=== PATIENT | female | born 2000 | race Caucasian/White ===

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

== ENCOUNTER 2021-01-10 02:50 | Inpatient (IN) | payer MEDICAID, SELFPAY ==
[2021-01-10] VITALS (60 sets, daily range): BP systolic 118–182; BP diastolic 56–92; PULSE 61–131; RESP 16–20; TEMP 36.1–36.7; O2SAT 96–99; BMI 27.3
[2021-01-10 03:06] LABS: Nitrazine Paper, PH Positive
[2021-01-10] MEDS: lactated ringers 1,000 ML 999 ML IV (03:50)
[2021-01-10 04:04] LABS: Basophils % 0.4 %; Eosinophils % 0.1 %; Hematocrit 33.4 % (37.0-47.0); Hemoglobin 10.1 g/dL (11.5-15.3); Lymphocytes # 2.8 10^3/uL (1.5-6.5); Lymphocytes % 38.8 %; Mean Corpuscular HGB Conc 30.2 g/dL (30.0-36.0); Mean Corpuscular Volume 75.9 fl (81-99); Mean Platelet Volume 12.6 fL (7.4-10.4); Monocytes # 0.5 10^3/uL (0.2-0.9); Monocytes % 7.6 %; Neutrophils # 3.71 10^3/uL (1.8-8.0); Neutrophils % 52.5 %; Nucleated Red Blood Cells % 0 %; Platelet Count 340 10^3/cmm (130-400); Red Cell Distribution Width 17.2 % (12.1-15.1); White Blood Count 7.1 10^3/uL (4.5-13.0)
--- NOTE | 2021-01-10 04:08 | PC.NURSE ---
Patient's pain increased from 5 to a 6/10. Pt's IV fluid bolus initiated by Karel Mead for epidural procedure. Offered patient fentanyl IV pain medication, she denies at this time.
--- NOTE | 2021-01-10 05:05 | ANES.PREANE2 ---
Pre-Anesthetic Assessment Pre-Anesthetic Assessment: Height/Weight: Height 1.73 m Weight 81.647 kg Pulse Resp BP 85 20 H 134/68 01/10/21 03:50 01/10/21 03:26 01/10/21 03:50 Preop Diagnosis: labor pains Proposed Procedure: epidural Familial anesthetic complications: none Was Beta Luci taken within 24 hours: N/A Was Clonidine taken within 24 hours: N/A Social: Social History: No alcohol and No tobacco Exam: Pre-Anes Outpt Exam: alert, oriented x 3, clear to auscultation bilaterally and regular rate & rhythm Airway: Submandibular: WNL Cervical ROM: WNL MP: 2 Dentition: Full Pulmonary: Pulmonary: None reported Comments: costochondritis CV/HEM: CV/HEM: None reported : : None reported Hepatic: Hepatic: None reported GI: GI: GERD (milk makes it better) Metabolic: Metabolic: None reported Musc/skel: Musc/skel: None reported Neuropsych: Neuropsych: Anxiety Anesthetic Plan: ASA status: 2 Anesthesia: Regional (specify below) Risk of > 500 ml blood loss (7ml/kg in children): No Meds/Allergies Current Medications: Current Medications Generic Name Dose Route Start Last Admin Trade Name Freq PRN Reason Stop Dose Admin Lactated Ringer's 1,000 mls @ 999 m ls/hr 01/10/21 03:26 01/10/21 03:50 Lactated Ringers IV 999 mls/hr .Q1H1M PRN Administration See label comment s PFSH Anesthesia PFSH: Social History Smoking and tobacco status: never smoked Alcohol intake: never Female Reproductive History: Date of last menstrual period: 04/16/20 : 1 Data Anesthesia CBC & Chem 7: 01/10/21 03:05 Other Labs: Laboratory Results - last 48 hr 01/10/21 03:05 WBC 7.1 RBC 4.40 Hgb 10.1 L Hct 33.4 L MCV 75.9 L MCH 23.0 L MCHC 30.2 RDW 17.2 H Plt Count 340 MPV 12.6 H Neut % (Auto) 52.5 Lymph % (Auto) 38.8 [place] % (Auto) 7.6 Eos % (Auto) 0.1 Baso % (Auto) 0.4 Neut # (Auto) 3.71 Lymph # (Auto) 2.8 [place] # (Auto) 0.5 Eos # (Auto) 0.0 Baso # (Auto) 0.0 Nucleated RBC % (auto) 0 Nucleated RBCs # 0.0 Cardiac Studies: No Data to Display
[2021-01-10] MEDS: fentaNYL 50 mcg/mL INJ 2mL IVP (05:29)
[2021-01-10] MEDS: lactated ringers 1,000 ML 125 ML IV (05:31)
--- NOTE | 2021-01-10 05:43 | P.ANES_ITS ---
Anesthesia Procedures Procedure/Date: 01/10/21 epidural Procedure Narrative: epidural complete, bolus given, epidural pump initiated with JEWEL CORNER BRUSHING MACHINE OPERATOR education given, vitals taken during procedure using OBIX system and satisfactory throughout, patient admits to decrease pain, report of procedure to OB RN Epidural: Time Out Performed: Yes Consents Signed: Procedure Consent Consent: requested by attending/covering physician, from patient, risks and benefits reviewed and patient agrees to proceed Lumbar Level: L3-L4 Epidural position: sitting Epidural procedure: sterile prep of area, 1% lidocaine to numb the area (3 mL), 18 g needle, negative for paresthesia passed, neg for paresthesia, test dose given, 1.5% xylocaine 1:200k epi (5 mL), 0.2% Ropivacaine bolus ml (5 mL), placed PCEA, no systemic response, sterile dressing applied, L.U.D. no apparent complications and 0.2% Ropiavacaine @ mls/hr (13 mL/hr)
[2021-01-10] MEDS: oxytocin 30 UNIT/500 ML BAG IV (10:04)
--- NOTE | 2021-01-10 12:12 | PM.OPHPUD ---
Labor & Delivery H&P Update Date of Procedure: January 10, 2021 Date H&P Performed: 01/03/21 Admission Diagnosis: Preop diagnosis: labor pains
--- NOTE | 2021-01-10 12:14 | PM.DELIVERY ---
Delivery Note: Date of delivery: January 10, 2021 Pre-Delivery Course: She had routine care during she was O+ antibody negative, rubella immune, GBS negative. Mother did test Covid positive on 12/27/2020 and is passed her quarantine. Delivery: This is a 20-year-old at 38 weeks 3 days gestation who presented to labor and delivery complaining of spontaneous rupture of membranes. She had rupture of membranes at approximately 02 100 with clear fluid. She was grossly ruptured. She received an epidural for pain management. Her labor was augmented using Pitocin and she had a normal spontaneous vaginal delivery of a viable male infant weight 7 pounds 1 ounces, 3210 g over an intact perineum. The was suctioned at delivery and placed on the mother's chest. The cord was clamped and cut. The placenta was delivered grossly intact and normal to inspection. There was a first-degree vaginal laceration that was sutured using 3-0 chromic. Mother and infant were doing well after delivery. Mother was GBS negative. Rupture of membranes was approximately 10 hours prior to delivery. A&P Assessment and plan (1) Spontaneous with laceration of vagina: Status: Acute Coding Level of Care Code Acute Administrative Support Coordinator for [facility] Diagnoses Spontaneous with laceration of vagina O03.84
[2021-01-10] MEDS: benzocaine-menthol 78 gm Canister 1 SPRAY TOPICAL (14:34)
[2021-01-10] MEDS: lanolin oint 7 gm 1 APPLIC TOPICAL (14:35)
[2021-01-10] MEDS: ibuprofen 800 mg tablet PO ×2 (14:35→21:54)
--- NOTE | 2021-01-10 16:11 | ANE.PACU2 ---
Inpatient post-anesthesia follow up: Airway intact: Yes Vital signs: Temperature 97.0 F Pulse Rate 81 Respiratory Rate 16 Blood Pressure 140/76 Pulse Oximetry 98 Oxygen Delivery Me thod Non-Rebreather Oxygen Flow Rate 10 Fraction of Inspir ed Oxygen Hydration adequate: Yes Nausea and vomiting: No Pain level: 1 Mental status: Baseline
[2021-01-11 00:50] LABS: Mean Corpuscular Hemoglobin 23.3 pg (28.0-34.0); Mean Corpuscular Volume 77.5 fl (81-99); Mean Platelet Volume 11.4 fL (7.4-10.4); Platelet Count 240 10^3/cmm (130-400); Red Blood Count 3.87 10^6/uL (4.1-5.3); Red Cell Distribution Width 17.1 % (12.1-15.1); White Blood Count 8.9 10^3/uL (4.5-13.0)
[2021-01-11 02:00] VITALS: BP 119/72; PULSE 70; TEMP 36.7; O2SAT 99
[2021-01-11 06:00] VITALS: BP 131/73; PULSE 77; O2SAT 98
[2021-01-11] MEDS: docusate sodium 100 mg Capsule PO (09:08)
[2021-01-11] MEDS: prenatal vitamin Capsule 1 CAP PO (09:08)
[2021-01-11] MEDS: ibuprofen 800 mg tablet PO (09:08)
[2021-01-11 11:10] VITALS: BP 143/88; PULSE 84; RESP 16; TEMP 36.6; O2SAT 98
--- NOTE | 2021-01-11 12:52 | PM.DCS ---
Discharge Providers Date of Admission: 01/10/21 02:50 Date of Discharge: January 11, 2021 Attending Provider at Admission: Jazmine Blancas MD Attending Provider at Discharge: Jazmine Blancas MD Primary Care Provider: Maria T Carbone DO Diagnoses at Discharge Discharge Diagnosis (1) Spontaneous vaginal delivery: Status: Acute Reason for Visit Reason for Visit: possible [facility] Hospital Course Hospital Course This is a 20-year-old G1 now P1 who was admitted with spontaneous rupture of membranes at 38 weeks 3 days gestation. She had a normal spontaneous vaginal delivery of a viable male . Mother and infant did well after delivery. On day #1 she was ambulating, tolerating a regular diet, had average vaginal bleeding and was comfortable with discharge home. Physical Exam Narrative: EXAM NARRATIVE: Alert and oriented, sitting up in bed holding baby. Abdomen is soft, nontender, fundus is firm and U- 2. She does have some pedal edema that is nonpitting, no calf tenderness. Urinary Catheter Management^: Kirk: Cath Placed During This Visit: yes Reason for Continuing Indwelling Catheter: Perioperative Use in Selected Surgeries Urinary Catheter Date of Insertion: 01/10/21 Urinary Catheter Time of Insertion: 06:10 Discharge Data Data Completed and Pending: Labs from last 24 hours 01/11/21 00:26 WBC 8.9 RBC 3.87 L Hgb 9.0 L Hct 30.0 L MCV 77.5 L MCH 23.3 L MCHC 30.0 RDW 17.1 H Plt Count 240 MPV 11.4 H Vitals: Last Vital Signs Temp 98.0 F 01/11/21 02:00 Pulse 77 01/11/21 06:00 Resp 17 01/10/21 19:45 BP 131/73 01/11/21 06:00 Pulse Ox 98 01/11/21 06:00 Discharge Plan Discharge Patient Disposition: Home Condition: Stable Prescriptions: Continued 1 tab PO DAILY@0800 RF: 0 Discharge Orders: Discharge Order (Routine); Ordered 01/11/21 Ordered By: Jazmine Blancas Referrals: Jazmine Blancas MD [Physician] - 1 month Discharge Diet: Usual diet Discharge Activity: Limit activity as instructed Patient Instructions: Opioid Safety Activity Restrictions/Additional Instructions: Nothing per vagina for at least 6 weeks Discharge Attestations Time Spent in Discharge Care*: less than 30 min Quality Metrics Clinical Quality Measures During this hospital stay, did patient experience: None Coding Level of Care Code Acute Chg FW DC note Diagnoses Spontaneous vaginal delivery O80
[2021-01-11 16:11] VITALS: BP 149/87; PULSE 72; RESP 16; TEMP 36.7; O2SAT 99
== END 2021-01-11 15:50 | disposition home or self-care (01) | DRG 807 ==
LOC: OPOB 03:33 → OBGYN 03:33
PROVIDERS: Admitting Provider Family Medicine; PCP Family Medicine; Visit Provider Family Medicine
DX: O70.0 First degree perineal laceration during delivery (principal); Z37.0 Single live birth; Z3A.38 38 weeks gestation of pregnancy; Z86.16 Personal history of COVID-19
CPT/HCPCS: 36415; 51702; 59025; 59409; 83986; 85025; 85027; 96374; 98960; 99211; J2795; J3010

== ENCOUNTER 2024-03-08 09:02 | Emergency (ER) | payer BC, SELFPAY ==
[2024-03-08 09:24] VITALS: BP 120/85; PULSE 90; RESP 16; TEMP 36.8; O2SAT 100; BMI 21.2
--- NOTE | 2024-03-08 09:40 | W.ED.HA ---
HPI - Headache General: Chief Complaint: Headache Stated Complaint: Headache, N/V 10 weeks preg Time Seen by Provider: 03/08/24 09:20 Source: patient Mode of arrival: ambulatory Limitations: no limitations History of Present Illness: Patient is a 23-year-old female at approximately 10 weeks here with complaints of a headache. Patient states she normally does not have a history of headaches but states she has had them in the past with her prior . She states she had to come to the emergency department once in 2020 for severe headache during . She states the medication she was provided with almost completely resolved her headache. She states her headache today is similar to then. Headache began several hours ago. She is not having any neck pain or stiffness. No fevers. No recent injury or trauma. States she is having some paresthesias to her fingers and mouth/lips. She states she has had this before. It was documented in 2020 with similar symptoms as well. She does appear slightly anxious. MD elicited complaint: headache Pertinent past history: migraines (during ) Onset (ago): hour(s) Severity: severe Pain scale (0-10): 9 Exacerbating factors: none Relieving factors: nothing Associated symptoms: Reports nausea; Deny chest pain, confusion, fever(s), lightheadedness, malaise, pre-syncope, syncope or vomiting Treatments prior to arrival: none Related Data Previous Rx's Medication Instructions Recorded carbamide peroxide 6.5 % ear drops 5 drp otic (ear) DAILY 4 days #15 01/26/23 (Debrox) mL Allergies Allergy/AdvReac Type Severity Reaction Status Date / Time No Known Allergies Allergy Verified 01/26/23 08:28 Review of Systems Const: Denies: fever(s), chills, body aches, fatigue or malaise Eyes: Denies: change in vision, blurry vision, photophobia, floaters or seeing flashes Card: Denies: chest pain, palpitations, lightheadedness, syncope or pre-syncope Resp: Denies: dyspnea GI: Reports: nausea; Denies: abdominal pain, vomiting or diarrhea : Denies: flank pain or dysuria Musc: Denies: neck pain, back pain, extremity pain, extremity swelling, joint pain or joint swelling Neuro: Reports: headache(s); Denies: weakness in extremities, lack of coordination, difficulty walking, dizziness, confusion, behavioral changes, Slurred speech present, difficulty communicating thoughts or seizure-like activity PFSH ED PFSH: Social History Smoking and tobacco/nicotine status: never used tobacco/nicotine Alcohol intake: never Substance/Drug Use: never Physical Exam Const: COMMON NORMALS: average body habitus, patient oriented x3, no limitations, healthy appearing, alert and well nourished GENERAL APPEARANCE: in distress (appears uncomfortable secondary to headache) and anxious ORIENTATION/CONSCIOUSNESS: Yes awake, Yes oriented to person, Yes oriented to place and Yes oriented to time HENMT: COMMON NORMALS: normocephalic and atraumatic HEAD & SCALP: normal to inspection, normocephalic and atraumatic FACE & SINUS: normal facial exam and face symmetric Eye: GENERAL EYE: appearance normal, both eyes and all related structures and normal light reflex DIRECT OPHTHALMOSCOPY: Yes normal light reflex Neck/C-Spine: COMMON NORMALS: full ROM and no meningeal signs Resp: COMMON NORMALS: normal respiratory effort and clear to auscultation bilaterally AUSCULTATION: clear to auscultation bilaterally Cardio: COMMON NORMALS: regular rate and regular rhythm RATE: regular rate RHYTHM: regular rhythm Extremity: GENERAL: Yes normal exam except as noted Neuro: JUAN COMA SCALE: document GCS findings [place] coma scale eye opening: Spontaneous Juan coma scale verbal response: Orientated [place] coma scale motor response: Obey commands [place] coma scale total score: 15 COMMON NORMALS: patient oriented x3, CN's II-XII intact bilaterally, moves all extremities, no focal motor deficits, no sensory deficits noted and gait normal SENSORIUM/ORIENTATION: Yes alert, Yes oriented to person, Yes oriented to place and Yes oriented to time MENINGEAL SIGNS: Yes no meningeal signs Skin: COMMON NORMALS: no rashes or lesions noted GENERAL SKIN EXAM: no rashes or lesions noted Course Vital Signs: Vital signs: Vital Signs Temperature 98.3 F 03/08/24 09:24 Pulse Rate 85 03/08/24 09:42 Respiratory Rate 16 03/08/24 09:24 Blood Pressure 126/68 03/08/24 09:42 Pulse Oximetry 99 03/08/24 09:42 Oxygen Delivery Me thod Room Air 03/08/24 09:42 MDM - Headache Medical Decision Making Patient was given IV fluids, Toradol, Phenergan, and Acetaminophen as this is what she was given back in 2020. I did check with Dr. Dominguez in regards to the Toradol who stated we could use this during early . Upon arrival to the emergency department she was rating her head at a 9/10. Upon re-examination she is sleeping comfortably in no acute distress. She has now rating her pain at a 2/10 and would like to go home and rest. Return to ED precautions given. Differential Diagnosis Likely migraine Medical Records I reviewed the patient's medical records. No radiology studies performed this visit Discharge Plan Discharge Patient Disposition: Home Clinical Impression: Headache in Qualifiers: Trimester: first trimester Qualified Code(s): O26.891 - Other specified related conditions, first trimester Condition: Stable Prescriptions: No Action Debrox 6.5 % drops 5 drp otic (ear) DAILY 4 Days Qty: 15 0RF Discharge Orders: Discharge ED (Routine); Ordered 03/08/24 Ordered By: Janis Francois Referrals: Maria T Carbone DO [Primary Care Provider] - Activity Restrictions/Additional Instructions: You may return to the emergency department at anytime for continued onset of severe headache, visual changes, repetitive episodes of vomiting, fever, neck pain or stiffness, any mental status changes, or any other concerns you may have. Coding Level of Care Code ED Program Management Manager for [facility]
[2024-03-08 09:42] VITALS: BP 126/68; PULSE 85; O2SAT 99
[2024-03-08] MEDS: promethazine 25 mg/mL SDV 1 mL IM (09:54)
[2024-03-08] MEDS: ketorolac 30 mg/mL INJ IVP (09:56)
[2024-03-08] MEDS: acetaminophen 1,000 MG/100 ML PIGGYBACK 400 MG IV (10:00)
[2024-03-08] MEDS: sodium chloride 0.9% 1,000 ML 999 ML IV (10:03)
[2024-03-08 11:03] VITALS: BP 129/73; PULSE 68; O2SAT 100
== END 2024-03-08 11:07 | disposition home or self-care (01) ==
PROVIDERS: Emergency Provider Physician Assistant; PCP Family Medicine
DX: O26.891 Other specified pregnancy related conditions, first trimester (principal); Z3A.10 10 weeks gestation of pregnancy
CPT/HCPCS: 96374; 96375; 99284; J0131; J1885; J2550; J7030

== ENCOUNTER 2024-08-16 22:05 | Outpatient (CLI) | payer BC, SELFPAY ==
[2024-08-16 22:05] VITALS: BMI 26.6
[2024-08-16 22:16] VITALS: BP 138/73; PULSE 100
[2024-08-16 22:36] VITALS: BP 122/67; PULSE 88
[2024-08-16 22:43] LABS: Nitrazine Paper, PH Negative
[2024-08-16 22:55] LABS: Bilirubin Urine Neg (Negative); Blood Urine Trace (Negative); Glucose Urine UA Norm (Normal); Ketones Urine Negative (Negative); Leukocyte Esterase Urine 2+ (Negative); Nitrate Urine Negative (Negative); Protein Urine Neg (Negative); Urine Appearance Clear (CLEAR); Urine Color Yellow (Yellow); Urobilinogen Urine Norm (Negative); pH Urine 8 (5-7)
[2024-08-16 22:56] VITALS: BP 134/72; PULSE 92
[2024-08-16 22:57] LABS: Bacteria Urine 1+ /hpf; Hyaline Casts Urine 1.21 /lpf; RBC Urine 0-2 /hpf (0-2); Squamous Epithelial Cell Urine 0-5 /hpf (0-5)
[2024-08-16 23:05] LABS: Add Urine Culture? Yes
[2024-08-16 23:16] VITALS: BP 131/65; PULSE 90
[2024-08-16 23:16] LABS: Actim Prom Negative
[2024-08-16 23:37] VITALS: BP 124/58; PULSE 95
[2024-08-16 23:56] VITALS: BP 124/72; PULSE 94
[2024-08-17] VITALS (7 sets, daily range): BP systolic 116–127; BP diastolic 56–64; PULSE 74–92; RESP 16; O2SAT 98
[2024-08-17] MEDS: cefTRIAXone 1,000 MG in lidocaine 1% 2.1 ML 2.1 MG IM (00:04)
[2024-08-17] MEDS: NIFEdipine ER (24 hr) 30 mg Tablet PO (00:54)
== END 2024-08-17 01:52 | disposition home or self-care (01) ==
LOC: OPOB 22:12 → OBGYN 22:13
PROVIDERS: PCP Family Medicine; Visit Provider Family Medicine
DX: O26.899 Other specified pregnancy related conditions, unspecified trimester (principal); Z3A.00 Weeks of gestation of pregnancy not specified; R10.9 Unspecified abdominal pain; N89.8 Other specified noninflammatory disorders of vagina
CPT/HCPCS: 59025; 81001; 83986; 84112; 87086; 99211

== ENCOUNTER 2024-08-17 14:14 | Outpatient (CLI) | payer BC, SELFPAY ==
[2024-08-17 14:14] VITALS: RESP 17; BMI 26.3
[2024-08-17 14:41] VITALS: BP 117/66; PULSE 96
[2024-08-17] MEDS: NIFEdipine ER (24 hr) 30 mg Tablet PO (15:29)
== END 2024-08-17 16:17 | disposition home or self-care (01) ==
LOC: OPOB 14:15 → OBGYN 14:15 → NUR 14:52 → OBGYN 14:55
PROVIDERS: PCP Family Medicine; Visit Provider Family Medicine
DX: O26.899 Other specified pregnancy related conditions, unspecified trimester (principal); Z3A.00 Weeks of gestation of pregnancy not specified; R10.9 Unspecified abdominal pain
CPT/HCPCS: 59025; 99211; J9999

== ENCOUNTER 2024-09-12 12:30 | Outpatient (CLI) | payer BC, SELFPAY ==
[2024-09-12] VITALS (11 sets, daily range): BP systolic 113–134; BP diastolic 56–80; PULSE 78–104; RESP 16; BMI 27.8
[2024-09-12] MEDS: HYDROcodone-acetaminophen 5-325 mg Tablet 1 TAB PO (13:16)
[2024-09-12 13:43] LABS: Urine Creatinine 117 mg/dL (28-217); Urine Protein Random 20 mg/dL
[2024-09-12 13:44] LABS: UPRO/UCREAT Ratio 0.17 mg/mg CR
== END 2024-09-12 15:00 | disposition home or self-care (01) ==
LOC: OPOB 12:33 → OBGYN 12:33
PROVIDERS: PCP Family Medicine; Visit Provider Family Medicine
DX: O26.899 Other specified pregnancy related conditions, unspecified trimester (principal); Z3A.00 Weeks of gestation of pregnancy not specified; G43.909 Migraine, unspecified, not intractable, without status migrainosus
CPT/HCPCS: 59025; 82570; 84156; 99211; J9999

== ENCOUNTER 2024-09-20 04:53 | Inpatient (IN) | payer BC, SELFPAY ==
[2024-09-20] VITALS (17 sets, daily range): BP systolic 119–185; BP diastolic 62–76; PULSE 72–114; RESP 16–17; TEMP 36.8–37; O2SAT 98; BMI 27.8
[2024-09-20] MEDS: lactated ringers 1,000 ML 999 ML (04:45)
[2024-09-20 04:58] LABS: Basophils % 0.3 %; Eosinophils % 0.2 %; Hematocrit 37.3 % (36-47); Lymphocytes # 2.7 10^3/uL (0.8-4.8); Lymphocytes % 23.9 %; Mean Corpuscular HGB Conc 32.2 g/dL (30-55); Mean Corpuscular Hemoglobin 26.1 pg (27-33); Mean Corpuscular Volume 81.1 fl (85-98); Mean Platelet Volume 10.2 fL (7.4-10.4); Monocytes # 0.9 10^3/uL (0.2-0.9); Monocytes % 7.8 %; Neutrophils # 7.73 10^3/uL (1.8-7.7); Neutrophils % 67.4 %; Nucleated Red Blood Cells % 0 %; Platelet Count 264 10^3/cmm (157-399); Red Cell Distribution Width 20.4 % (12.1-15.1); White Blood Count 11.47 10^3/uL (3.29-11.43)
[2024-09-20] MEDS: oxytocin 30 UNIT/500 ML BAG 600 UNIT IV (05:32)
--- NOTE | 2024-09-20 05:50 | PM.OPHPUD ---
Labor & Delivery H&P Update Date of Procedure: September 20, 2024 Date H&P Performed: 09/19/24 Admission Diagnosis: 23-year-old 2 para 1-0-0-1 at 38 weeks estimated gestational age presenting in active labor Planned procedure: Spontaneous vaginal delivery Other information: The patient is a pleasant 38-week female who has had an unremarkable . She has had consistent care. There have been no complications. She presented to the hospital in active labor. She was found to be 7 cm dilated with a bag that was bulging past the introitus. Her blood type was O+. Her antibody screen was negative. She passed her glucose screen. She was GBS negative. She is rubella immune. The remainder of her infectious disease profile was within normal limits. Related Problem List Diagnoses (1) 38 weeks gestation of : (2) Active labor: A&P Assessment and plan (1) 38 weeks gestation of : I anticipate spontaneous vaginal delivery. Status: Acute (2) Active labor: Status: Acute PDMP PDMP Reviewed: Not Reviewed
--- NOTE | 2024-09-20 05:54 | P.PCNOB_ITS ---
Delivery Note: Date of delivery: September 20, 2024 Pre-delivery diagnoses: 23-year-old 2 para 1-0-0-1 in ac tive labor Post-delivery diagnoses: Status post spontaneous vaginal delivery Procedure: Spontaneous vaginal delivery Delivering Physician: Goldy Mckeon Estimated blood loss (mL): 25 Pre-Delivery Course: The patient presented to the hospital in active labor. She quickly progressed to complete. Her membranes were intact until just prior to delivery when an amniotomy was performed. Delivery: DELIVERY: The patient progressed to complete without difficulty. She delivered a female with a weight of [] with Apgars of 9, 10. The baby was delivered from the KIRK position and placed on the mother's abdomen. The cord was then clamped and cut. There was a nuchal cord x 2 which was reduced easily prior to delivery of the shoulder. There was no meconium. The placenta and 3 vessel cord were delivered intact shortly thereafter. The perineum and vaginal vault were carefully examined. A superficial posterior midline first-degree laceration was noted which was not bleeding did not require repair. Both the mother and the baby were in stable condition. Post-Delivery Status: Good A&P Assessment and plan (1) Spontaneous vaginal delivery: I anticipate routine care (2) 38 weeks gestation of : PDMP PDMP Reviewed: Not Reviewed Coding Level of Care Code Acute Code for Chg Fwd Diagnoses Spontaneous vaginal delivery O80 38 weeks gestation of Z3A.38
[2024-09-20] MEDS: docusate sodium 100 mg Capsule PO ×2 (10:31→18:30)
[2024-09-20] MEDS: lanolin oint 7 gm 1 APPLIC TOPICAL (10:31)
[2024-09-20] MEDS: ibuprofen 800 mg tablet PO ×3 (10:31→21:43)
[2024-09-20] MEDS: benzocaine-menthol 78 gm Canister 1 SPRAY TOPICAL (10:31)
[2024-09-20] MEDS: PRENATAL VIT NO.130/IRON/FOLIC 1 EACH TABLET PO (10:31)
[2024-09-20 18:38] LABS: Hematocrit 32.1 % (36-47); Mean Corpuscular HGB Conc 31.8 g/dL (30-55); Mean Corpuscular Hemoglobin 26.4 pg (27-33); Mean Corpuscular Volume 83.2 fl (85-98); Mean Platelet Volume 10.2 fL (7.4-10.4); Platelet Count 199 10^3/cmm (157-399); Red Blood Count 3.86 10^6/uL (3.85-5.65); Red Cell Distribution Width 20.3 % (12.1-15.1); White Blood Count 10.67 10^3/uL (3.29-11.43)
--- NOTE | 2024-09-21 05:46 | PM.OBGYDC ---
Discharge Providers [facility] [employer] Date of Admission: 09/20/24 04:53 Date of Discharge: 09/21/24 Attending Provider at Admission: Goldy Mckeon MD Attending Provider at Discharge: Goldy Mckeon MD Primary Care Provider: Maria T Carbone DO Diagnoses at Discharge Discharge Diagnosis (1) Spontaneous vaginal delivery: Status: Acute (2) 38 weeks gestation of : Status: Acute Reason for Visit Reason for Visit: Possible labor Hospital Course Hospital Course The patient presented to the hospital dilated 7 cm with her amniotic sac protruding from her vagina. Shortly after arriving, an amniotomy was performed, and several contractions after her amniotomy she had an unremarkable vertex vaginal delivery. The patient only had a superficial first-degree tear. It did not require repair. Her bleeding was within normal limits. Her course has also been within normal limits. She initially attempted to breast-feed, but was unsuccessful. Her bleeding has been unremarkable. Her pain has been well-controlled. There have been no concerns. Information Peripartum Data: Infant Delivery Method: Vaginal Physical Exam Narrative: The patient is alert. She appears comfortable. Her heart has a regular rate and rhythm with no murmurs appreciated. Lungs are clear to auscultation bilaterally. Her fundus is firm and below the umbilicus. Discharge Data Studies Completed and Pending Laboratory Results WBC 10.67 10^3/uL (3.29-11.43) 09/20/24 18:25 RBC 3.86 10^6/uL (3.85-5.65) 09/20/24 18:25 Hgb 10.20 g/dL (11.27-16.99) L 09/20/24 18: Hct 32.1 % (36-47) L 09/20/24 18: MCV 83.2 fl (85-98) L 09/20/24 18: MCH 26.4 pg (27-33) L 09/20/24 18: MCHC 31.8 g/dL (30-55) 09/20/24 18: RDW 20.3 % (12.1-15.1) H 09/20/24 18:25 Plt Count 199 10^3/cmm (157-399) 09/20/24 18: MPV 10.2 fL (7.4-10.4) 09/20/24 18:25 Neut % (Auto) 67.4 % 09/20/24 04:40 Lymph % (Auto) 23.9 % 09/20/24 04:40 Beadle % (Auto) 7.8 % 09/20/24 04:40 Eos % (Auto) 0.2 % 09/20/24 04:40 Baso % (Auto) 0.3 % 09/20/24 04:40 Neut # (Auto) 7.73 10^3/uL (1.8-7.7) H 09/20/24 04:40 Lymph # (Auto) 2.7 10^3/uL (0.8-4.8) 09/20/24 04:40 Beadle # (Auto) 0.9 10^3/uL (0.2-0.9) 09/20/24 04:40 Eos # (Auto) 0.0 10^3/uL (0.0-0.8) 09/20/24 04:40 Baso # (Auto) 0.0 10^3/uL (0.0-0.1) 09/20/24 04:40 Nucleated RBC % (auto) 0 % 09/20/24 04:40 Nucleated RBCs # 0.0 /100WBC 09/20/24 04:40 Blood Type O Positive 09/20/24 04:40 Rho(D) Type Rh positive 09/20/24 04:40 Antibody Screen Negative 09/20/24 04:40 Vitals Last Vital Signs Temp 98.2 F 09/20/24 23:28 Pulse 72 09/20/24 23:28 Resp 16 09/20/24 23:28 BP 124/72 09/20/24 23:28 Pulse Ox 98 09/20/24 23:28 O2 Del Method Room Air 09/20/24 23:28 Results Labs OB ([facility]): Obstetrics US 07/21/24 Blood Type O Positive 09/20/24 Antibody Screen Negative 09/20/24 Hct, (36-47) 32.1 % L 09/20/24 Hgb, (11.27-16.99) 10.20 g/dL L 09/20/24 Rho(D) Type Rh positive 09/20/24 Plt Count, (157-399) 199 10^3/cmm 09/20/24 Micro Urine Specimen 08/16/24 Discharge Plan Discharge Patient Disposition: Home Condition: Stable Prescriptions: New ibuprofen 800 mg Tablet 800 mg PO TID Qty: 45 0RF Continued ferrous sulfate [Iron (ferrous sulfate)] 325 mg (65 mg iron) Tablet 1 mg PO 1XD [id number] 1 mg Tablet 1 tab PO 1XD Discharge Orders: Discharge Order (Routine); Ordered 09/21/24 Ordered By: Goldy Mckeon Referrals: Goldy Mckeon MD [Physician, Family Practice] - 6 Weeks Discharge Diet: Usual diet Discharge Activity: Limit activity as instructed Patient Instructions: Opioid Safety Discharge Attestations [facility] [employer] Time Spent in Discharge Care*: less than 30 min Coding Level of Care Code Acute Code for Chg Fwd Diagnoses Spontaneous vaginal delivery O80 38 weeks gestation of Z3A.38
[2024-09-21 06:24] VITALS: BP 121/74; PULSE 99; RESP 16; TEMP 36.6; O2SAT 97
[2024-09-21] MEDS: ibuprofen 800 mg tablet PO (09:23)
[2024-09-21] MEDS: docusate sodium 100 mg Capsule PO (09:23)
[2024-09-21] MEDS: PRENATAL VIT NO.130/IRON/FOLIC 1 EACH TABLET PO (09:23)
[2024-09-21 10:00] VITALS: BP 136/78; PULSE 99; RESP 16; TEMP 36.8
== END 2024-09-21 10:05 | disposition home or self-care (01) | DRG 807 ==
LOC: OPOB 05:31 → OBGYN 05:31
PROVIDERS: Admitting Provider Family Medicine; PCP Family Medicine; Visit Provider Family Medicine
DX: O69.81X0 Labor and delivery complicated by cord around neck, without compression, not applicable or unspecified (principal); Z37.0 Single live birth; Z3A.38 38 weeks gestation of pregnancy
CPT/HCPCS: 36415; 59025; 59409; 85025; 85027; 86850; 86900; 99211; J2590; J7120; J9999